=== PATIENT | male | born 1985 | race Caucasian/White ===

== ENCOUNTER 2017-08-10 19:56 | Emergency (ER) | payer MEDICAID ==
[~2017-08-10] VITALS: Ht 170.2 cm; Wt 68.0 kg
[2017-08-10 20:11] VITALS: Ht 170.2 cm; Wt 68.0 kg
[2017-08-10 21:27] VITALS: BP 113/74
== END 2017-08-10 21:27 | disposition home or self-care (01) ==
LOC: ED 19:56
DX: F43.20 Adjustment disorder, unspecified (principal); Z87.891 Personal history of nicotine dependence
CPT/HCPCS: Q0092